=== PATIENT | female | born 1985 | race African-American/Black ===

== ENCOUNTER 2019-04-20 23:48 | Inpatient (IN) | payer BC ==
[2019-04-21 00:20] LABS: Amnisure Internal Control QC ACCEPTABLE (ACCEPTABLE); Amnisure Test RUPTURE DETECTED (No Rupture)
[2019-04-21 00:23] VITALS: BMI 28.0
[2019-04-21] MEDS: Lactated Ringer's 1,000 ML IV SCH ×5 (01:15→20:22)
[2019-04-21] MEDS ORDERED: NS / Oxytocin 40 units/1000ml 1,000 ML IV PRN (01:23)
[2019-04-21] MEDS ORDERED: Ondansetron PF 4 MG/2 ML Vial IVP PRN ×2 (01:23→07:20)
[2019-04-21] MEDS ORDERED: hydrALAZINE 20 MG/ML VIAL SLOW IVP PRN (01:23)
[2019-04-21] MEDS ORDERED: HYDROcodone/Acetaminophen 5/325 mg Tablet PO PRN ×2 (01:23)
[2019-04-21] MEDS ORDERED: Lidocaine 1% (PF) 30 ML VIAL SC PRN (01:23)
[2019-04-21] MEDS ORDERED: Butorphanol Tartrate 1 MG/ML VIAL SLOW IVP PRN (01:23)
[2019-04-21] MEDS ORDERED: Promethazine HCl 25 MG/ML VIAL IM PRN ×2 (01:23→07:20)
[2019-04-21] MEDS ORDERED: Ibuprofen 800 MG TAB PO PRN (01:23)
[2019-04-21] MEDS ORDERED: Penicillin G Potassium 5 MILL.UNITS in Sodium Chloride 0.9% 100 ML IVPB SCH (01:30)
[2019-04-21] MEDS ORDERED: Lactated Ringer's 1,000 ML IV SCH (01:30)
--- NOTE | 2019-04-21 01:37 | HP ---
TIME OF SERVICE: 99. REASON FOR ADMISSION: Rupture of membranes at 38 and 2 weeks. HISTORY OF PRESENT ILLNESS: is a G1, P0, with SROM at 2300 on 04/20. She has been receiving her care in [place]. She reports an uncomplicated . 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 She noted clear fluid at 2300. No significant OB history is known. The patient is not aware of her group B strep status. PAST MEDICAL HISTORY: None. PAST SURGICAL HISTORY: Appendectomy in 2008. ALLERGIES: DENIES. MEDICATIONS: vitamins. SOCIAL HISTORY: Denies tobacco, alcohol, or IV drug use. FAMILY HISTORY: Noncontributory. REVIEW OF SYSTEMS: Noncontributory. PHYSICAL EXAMINATION: GENERAL: Black female, in no acute distress. VITAL SIGNS: 118/72, pulse 85, respirations 18, temperature 98.6. HEENT: Within normal limits. LUNGS: Clear to auscultation bilaterally. HEART: Regular rhythm. ABDOMEN: Soft, nontender. Fundal height 39. Estimated weight 7 to 7.5 pounds. VULVA: Without lesions. VAGINA: Clear fluid noted. CERVIX: 150, -2 cephalic, bag of water ruptured by RN exam. EXTREMITIES: No clubbing, cyanosis, or edema. monitoring was carried out, a category 1 to category 2 heart rate tracing with 150s baseline with occasional contractions as noted. No spontaneous decelerations are noted. IMPRESSION: 1. Other care records are not available. 2. 38-39 weeks gestation by stated gestational age. 3. Spontaneous rupture of membranes with clear fluid. 4. Hypertonic labor at this time. PLAN: 1. Admission. 2. Group B strep prophylaxis. 3. No care labs. 4. Pitocin augmentation if no development of spontaneous labor. Job ID: [id number]
[2019-04-21 01:58] LABS: Hemoglobin 12.3 g/dL (12.0-16.0); Mean Corpuscular HGB CONC 33.3 g/dL (32.0-36.0); Mean Corpuscular Hemoglobin 22.7 pg (27.0-31.0); Mean Corpuscular Volume 68.2 fL (78.0-98.0); Mean Platelet Volume 10.8 fL (7.4-10.4); Platelet Count 259 thou/uL (130-400); RBC Distribution Width 17.1 % (11.5-14.5); Red Blood Cell (RBC) Count 5.43 mill/uL (4.20-5.40); White Blood Cell (WBC) Count 7.8 thou/uL (4.8-10.8)
[2019-04-21 02:09] LABS: HBSAg Index 0.15 S/CO (0-0.99); HIV (1/2) Antibody/Antigen Non-Reactive (NonReactive); HIV 1/2 INDEX 0.09 S/CO (<1.00); Hep B Surf Ag Non-Reactive S/CO (NonReactive)
[2019-04-21 02:28] LABS: HBSAB Concentration 0.25 mIU/mL; Hep B Surf AB Non-Reactive (NonReactive)
[2019-04-21 02:54] LABS: Amphetamine Not Detected (NotDetected); Barbiturates Screen Not Detected (NotDetected); Benzodiazepine Screen Not Detected (NotDetected); Cocaine Metabolite Screen Not Detected (NotDetected); Medtox Control Line Valid? VALID (VALID); Medtox Reader # READER 1; Methadone Not Detected (NotDetected); Methamphetamine Not Detected (NotDetected); Opiate Screen Not Detected (NotDetected); Oxycodone Screen Not Detected (NotDetected); Phencyclidine (PCP) Not Detected (NotDetected); THC/Cannabinoid Screen Not Detected (NotDetected); Tricyclic Screen Not Detected (NotDetected)
[2019-04-21] MEDS: NS w/ Oxytocin 10 units 500 ML IV SCH ×2 (03:11→20:22)
[2019-04-21] MEDS: Penicillin G 2.5 MILL.units 2.5 MILL.UNITS in Premix Bag 1 BAG IVPB SCH ×5 (05:34→21:58)
[2019-04-21 05:35] LABS: Syphilis Antibody Nonreactive (Nonreactive); Syphilis Antibody Index 0.02 S/CO (<1.00 Non-Reactive)
[2019-04-21] MEDS ORDERED: Fentanyl 4 mcg/Bup 0.1% Cadd 100 ML ONE ×3 (06:22→14:23)
[2019-04-21] MEDS ORDERED: ePHEDrine/0.9% NaCl/PF SYRINGE 50 mg/10 ml SLOW IVP PRN (07:20)
[2019-04-21] MEDS ORDERED: Acetaminophen 325 MG TAB PO PRN (07:20)
[2019-04-21] MEDS ORDERED: Naloxone HCl 0.4 mg/ml Vial IVP PRN ×2 (07:20)
[2019-04-21] MEDS ORDERED: Lactated Ringer's 500 ML IV PRN (07:20)
[2019-04-21] MEDS ORDERED: Communication Order-Pharmacy FS SCH (07:30)
--- NOTE | 2019-04-21 07:57 | PRG ---
DATE OF SERVICE: 04/21/2019 TIME OF ENCOUNTER: 0735 hours. SUBJECTIVE: The patient is resting comfortably. She just received a labor epidural Pitocin as at 6, going up to 8. She is having contractions approximately q.3 to 4 minutes. Last cervical exam by RN was 1.5, 80, and -2 with the head well applied to the cervix. heart rate tracing is category 1 with positive accelerations noted. Vital signs are stable. IMPRESSION: 38 to 39 weeks gestation with rupture of membranes, hypotonic labor. PLAN: Pitocin augmentation. Group B strep prophylaxis. We will try to obtain OB record and anticipate spontaneous vaginal delivery. Job ID: [id number]
[2019-04-21] MEDS ORDERED: FLU VACC QS2019-20(6MOS UP)/PF 60 MCG/0.5 ML SYRINGE IM ONE (09:00)
[2019-04-21] MEDS: Fentanyl 4 mcg/Bupivacaine 0.1% Cassette 100 ML EPIDURAL SCH ×2 (14:27→21:15)
--- NOTE | 2019-04-22 01:43 | PDOC.EVN ---
Event Note - Event Note Event Note: Pt was noted to be OP earlier in the day by myself with sve 4cm. IUPC had been placed. reexam this evening 0100 was 6cm but is now oa. She had been called 8cm by other examiner since 2199. will turn off pit and rest baby. FHT with moderate ltv [id number]. AFter rest for 2hours will start pit at 6mu. and increase by 6units in 45min then 2mu q20min. once adequate if not making change will proceed with csection. I have discussed this plan with the patient who agrees. Pt has made very slow change through the day. hopefully with baby OA she can make more regular change. vitals signs reviewed and wnl.
[2019-04-22] MEDS: Penicillin G 2.5 MILL.units 2.5 MILL.UNITS in Premix Bag 1 BAG IVPB SCH ×2 (02:01→09:23)
[2019-04-22] MEDS: Clindamycin/D5W 900 MG in Premix Bag 1 BAG IVPB SCH ×3 (02:32→20:04)
[2019-04-22] MEDS: Fentanyl 4 mcg/Bupivacaine 0.1% Cassette 100 ML EPIDURAL SCH (03:07)
[2019-04-22] MEDS: Gentamicin Sulfate 370 MG in Sodium Chloride 0.9% 100 ML IVPB SCH (03:20)
[2019-04-22] MEDS ORDERED: Lidocaine 2% 10 ML INJ ONE (03:41)
[2019-04-22] MEDS ORDERED: Bupivacaine PF 0.5% 30 ML VIAL ONE (03:43)
[2019-04-22] MEDS ORDERED: Ketamine 50 MG/ML (10ML VIAL) ONE (03:50)
[2019-04-22] MEDS ORDERED: Fentanyl 100 MCG/2 ML VIAL ONE (03:50)
[2019-04-22] MEDS ORDERED: Midazolam HCl 2 mg/2 ml Vial ONE (03:53)
[2019-04-22] MEDS ORDERED: Oxytocin 10 UNITS/ML VIAL ONE ×2 (03:57→04:08)
[2019-04-22] MEDS ORDERED: Dexamethasone 4 mg/ml Vial ONE (04:04)
[2019-04-22] MEDS ORDERED: Ondansetron PF 4 MG/2 ML Vial ONE (04:04)
[2019-04-22] MEDS ORDERED: Ketorolac Tromethamine 30 MG/ML VIAL ONE (04:04)
[2019-04-22] MEDS ORDERED: Esmolol 100 MG/10 ML VIAL ONE (04:04)
[2019-04-22 04:13] LABS: Actual Bicarbonate (HCO3v) 23 mEq/L (22-28); Base Excess -3.5 mEq/L (-2.0 to +3.0); pH (Cord, venous) 7.32 (7.32-7.43)
[2019-04-22] MEDS ORDERED: MORPHINE 5 MG/10 ML PF VIAL ONE (04:15)
[2019-04-22] MEDS ORDERED: Meperidine HCl/PF 25 MG/ML VIAL SLOW IVP PRN (04:34)
[2019-04-22] MEDS ORDERED: Naloxone HCl 0.4 mg/ml Vial IV PRN (04:34)
[2019-04-22] MEDS ORDERED: L&D-Morphine 4 MG/ML VIAL SLOW IVP PRN (04:34)
[2019-04-22] MEDS ORDERED: diphenhydrAMINE 50 MG/ML VIAL IVP PRN (04:34)
[2019-04-22] MEDS ORDERED: Promethazine HCl 25 MG/ML VIAL IM PRN (04:34)
[2019-04-22] MEDS ORDERED: Naloxone HCl 0.4 mg/ml Vial IVP PRN ×2 (04:34)
[2019-04-22] MEDS ORDERED: HYDROmorphone 2 MG/ML VIAL SLOW IVP PRN (04:34)
[2019-04-22] MEDS ORDERED: Ondansetron HCl/PF 4 MG/2 ML Vial IVP PRN (04:34)
[2019-04-22] MEDS ORDERED: Promethazine HCl 25 MG SUPP PR PRN (04:34)
[2019-04-22] MEDS ORDERED: Ondansetron PF 4 MG/2 ML Vial IVP PRN (04:34)
[2019-04-22] MEDS ORDERED: Communication Order-Pharmacy FS SCH (04:45)
[2019-04-22] MEDS ORDERED: Gentamicin Sulfate 60 MG in Premix Bag 1 BAG IVPB ONE (05:04)
--- NOTE | 2019-04-22 05:57 | OP ---
DATE OF PROCEDURE: 04/22/2019 PREOPERATIVE DIAGNOSES: 1. Intrauterine at 38 weeks and 4 days. 2. Spontaneous rupture of membranes. 3. Chorioamnionitis. 4. Nonreassuring heart tones. POSTOPERATIVE DIAGNOSES: 1. Intrauterine at 38 weeks and 4 days. 2. Spontaneous rupture of membranes. 3. Chorioamnionitis. 4. Nonreassuring heart tones. PROCEDURE PERFORMED: Primary lower transverse section. ANESTHESIA: Epidural. CIRCUIT BOARD ASSEMBLER: Dr. Mcallister, second-year resident. COMPLICATIONS: None. CONDITION: Stable to recovery room. COUNTS: Correct. ESTIMATED BLOOD LOSS: About 800 mL. QUANTITATIVE BLOOD LOSS: Pending. SPECIMENS: Blood gas and placenta to Pathology. FINDINGS: Female infant delivered on 04/22/2019 at 0356 hours with Apgars of 8 and 9, weight of 2869 g. DESCRIPTION OF PROCEDURE: Ms. Jenkins is a 33-year-old female who presented to Labor and Delivery with spontaneous rupture of membranes at 38 weeks gestation and was given induction of labor. Her labor course was protracted and ultimately acquired chorioamnionitis with non-reassuring heart tones and remote from delivery. Decision was made to proceed with after the patient had labored for over 24 hours. The patient was taken back to the operating room, where her epidural was re-dosed. She was placed in dorsal supine position with leftward tilt and prepared and draped in normal sterile fashion. After testing her anesthetic, a Pfannenstiel skin incision was made and carried to the level of fascia. Fascia was incised and the fascial incision was extended laterally with Sorenson scissors. With the aid of Kieran clamps, the superior fascia was elevated off the underlying rectus muscles and dissected off sharply and bluntly, both inferiorly and superiorly. Perineum was entered into bluntly, extended bluntly and superiorly and inferiorly. An Galo O retractor was then inserted adding visualization to the field. A bladder flap was created. Hysterotomy was performed in a transverse fashion in the lower uterine segment. Infant was delivered in vertex presentation to a sterile field without difficulty. The cord was clamped and cut, and the infant was handed off to the waiting attendance. Cord segment was obtained and the placenta was then extracted manually from the uterus. The uterus was then cleared of all clot and debris and the hysterotomy was closed with #1 Monocryl in a running locked fashion a 2nd imbricating layer. The bladder flap was then closed with 2-0 chromic. Good hemostasis was noted and the Galo O retractor was then removed. The peritoneum was closed with 2-0 chromic in a running fashion. The fascia was closed with 0 Vicryl in a running fashion. Subcuticular fat was closed with 2-0 plain gut in a running fashion and skin was closed with 4-0 Monocryl in a running fashion. The patient was then taken to the recovery room in stable condition. Job ID: [id number]
[2019-04-22] MEDS ORDERED: hydrALAZINE 20 MG/ML VIAL SLOW IVP PRN (07:29)
[2019-04-22] MEDS ORDERED: Adacel (T-DAP) 0.5 ML SYRINGE IM ONE (07:29)
[2019-04-22] MEDS: Ampicillin 2 GM in Sodium Chloride 0.9% 100 ML IVPB SCH ×3 (08:40→21:14)
[2019-04-22] MEDS: diphenhydrAMINE 50 MG/ML VIAL IVP PRN (09:56)
[2019-04-22] MEDS: Lactated Ringer's 1,000 ML IV SCH (09:56)
[2019-04-22] MEDS: Ferrous Sulfate 325 MG TAB PO SCH ×2 (09:57→23:32)
[2019-04-22] MEDS: Docusate Calcium (SURFAK) 240 MG CAP PO SCH ×2 (09:57→20:04)
[2019-04-22] MEDS: Ketorolac Tromethamine 30 MG/ML VIAL IVP SCH ×3 (12:09→23:56)
[2019-04-23] MEDS: diphenhydrAMINE 50 MG/ML VIAL IVP PRN (00:14)
[2019-04-23] MEDS: Ampicillin 2 GM in Sodium Chloride 0.9% 100 ML IVPB SCH ×4 (02:00→19:47)
[2019-04-23] MEDS: Lactated Ringer's 1,000 ML IV SCH ×4 (02:04→21:24)
[2019-04-23] MEDS: Gentamicin Sulfate 370 MG in Sodium Chloride 0.9% 100 ML IVPB SCH (03:29)
[2019-04-23] MEDS: Clindamycin/D5W 900 MG in Premix Bag 1 BAG IVPB SCH ×3 (04:42→20:59)
[2019-04-23 04:50] LABS: Hemoglobin 8.5 g/dL (12.0-16.0); Mean Corpuscular Hemoglobin 21.9 pg (27.0-31.0); Mean Corpuscular Volume 70.7 fL (78.0-98.0); Mean Platelet Volume 11.8 fL (7.4-10.4); Platelet Count 179 thou/uL (130-400); RBC Distribution Width 17.2 % (11.5-14.5); Red Blood Cell (RBC) Count 3.86 mill/uL (4.20-5.40); White Blood Cell (WBC) Count 9.8 thou/uL (4.8-10.8)
[2019-04-23] MEDS: Ketorolac Tromethamine 30 MG/ML VIAL IVP SCH (05:55)
[2019-04-23] MEDS ORDERED: Gentamicin Sulfate 360 MG in Sodium Chloride 0.9% 100 ML IVPB SCH (06:00)
--- NOTE | 2019-04-23 06:39 | PDOC.PP ---
Post Progress Note Post Day #: POD1 Subjective: Resting, no complaints. Tolerating clear liquids. PO intake tolerated: yes Flatus: no Ambulation: yes Vital Signs (12 hours) Temp Pulse Resp BP BP Pulse Ox 04/23/19 04:00 98.3 F 88 18 112/64 97 04/23/19 02:00 18 04/23/19 00:00 98.0 F 74 18 105/58 L 97 04/22/19 22:00 18 04/22/19 20:20 98.7 F 84 16 122/74 96 Weight Weight 86.183 kg - Physical Examination General: NAD Respiratory: non-labored breathing Abdominal: no distention Skin: CS incision dry & intact Neurological: no gross focal deficits Psychiatric: normal affect Result Diagrams: 04/23/19 03:50 Additional Labs: Post Labs Blood Type O POSITIVE 04/21/19 02:41 Hep Bs Antigen Non-Reactive S/CO (NonReactive) 04/21/19 01:25 Rubella IgG Antibody 13.00 index (Immune >0.99) 04/21/19 01:25 - Assessment/Plan Advance diet. Ambulate hallway. Cont, IV ABX x 48hrs post C/S.
[2019-04-23] MEDS: Docusate Calcium (SURFAK) 240 MG CAP PO SCH ×2 (08:41→21:00)
[2019-04-23] MEDS: Ferrous Sulfate 325 MG TAB PO SCH (08:41)
[2019-04-23] MEDS ORDERED: HYDROcodone/Acetaminophen 5/325 mg Tablet PO PRN ×4 (18:41→21:20)
[2019-04-23] MEDS: Ibuprofen 800 MG TAB PO SCH (21:23)
[2019-04-24] MEDS: Ferrous Sulfate 325 MG TAB PO SCH ×2 (01:40→08:51)
[2019-04-24] MEDS: Ampicillin 2 GM in Sodium Chloride 0.9% 100 ML IVPB SCH (01:41)
[2019-04-24] MEDS: Gentamicin Sulfate 370 MG in Sodium Chloride 0.9% 100 ML IVPB SCH (03:33)
[2019-04-24] MEDS: Clindamycin/D5W 900 MG in Premix Bag 1 BAG IVPB SCH (04:38)
[2019-04-24] MEDS: Ibuprofen 800 MG TAB PO SCH ×2 (05:52→14:44)
--- NOTE | 2019-04-24 06:49 | PDOC.PP ---
Post Progress Note Post Day #: 2 Subjective: Doing well, no new issues PO intake tolerated: yes Flatus: yes Ambulation: yes Vital Signs (12 hours) Temp Pulse Resp BP Pulse Ox 04/24/19 04:40 98.2 F 80 18 110/65 04/24/19 01:40 97.6 F 76 18 99/49 L 04/23/19 20:15 99.6 F 95 16 104/58 L 99 Weight Weight 190 lb - Physical Examination General: NAD Respiratory: non-labored breathing Abdominal: + bowel sounds, lochia, no distention, appropriately TTP Extremities: negative homans (B) Skin: CS incision dry & intact (Original dressing in use (silver dressing)) Neurological: no gross focal deficits Psychiatric: A&Ox3, normal affect Result Diagrams: 04/23/19 03:50 Additional Labs: Post Labs Blood Type O POSITIVE 04/21/19 02:41 Hep Bs Antigen Non-Reactive S/CO (NonReactive) 04/21/19 01:25 Rubella IgG Antibody 13.00 index (Immune >0.99) 04/21/19 01:25 (1) delivery delivered Code(s): O82 - ENCOUNTER FOR DELIVERY WITHOUT INDICATION Status: Acute - Assessment/Plan POD2 s/p ABX for presumed IAI. Incision dressing in use...patient prefers I leave it on for now "to keep it covered". She will be DC to home this PM and have follow up wound check with TAMP in one week. Tylenol #3 and motrin for DC meds baby doing well.
[2019-04-24 08:21] VITALS: BP 111/69; TEMP 98.3
[2019-04-24] MEDS: Docusate Calcium (SURFAK) 240 MG CAP PO SCH (08:51)
[2019-04-24] MEDS: Lactated Ringer's 1,000 ML IV SCH (11:54)
== END 2019-04-24 17:05 | disposition home or self-care (01) | DRG 786 ==
LOC: L&D/OP 23:48 → L&D 04-21 00:39 → 3SW 04-22 07:43
PROVIDERS: ADMIT Obstetrics & Gynecology; ATTEND Obstetrics & Gynecology
PROC: 10H07YZ Insertion of Other Device into Products of Conception, Via Natural or Artificial Opening (ICD-10-PCS; principal; 2019-04-22)
PROC: 10D00Z1 Extraction of Products of Conception, Low, Open Approach (ICD-10-PCS; 2019-04-22)
DX: O76 Abnormality in fetal heart rate and rhythm complicating labor and delivery (principal); O41.1230 Chorioamnionitis, third trimester, not applicable or unspecified; O62.4 Hypertonic, incoordinate, and prolonged uterine contractions; O62.0 Primary inadequate contractions; Z3A.38 38 weeks gestation of pregnancy; Z37.0 Single live birth
CPT/HCPCS: 36415; 80306; 82805; 84112; 85027; 86706; 86762; 86780; 86850; 86900; 86901; 87340; 87389; 88307; J0290; J1100; J1200; J1580; J1885; J2001; J2250; J2274; J2405; J2540; J2590; J3010; J3490; S0020